=== PATIENT | female | born 1995 | race Two or more races ===

== ENCOUNTER 2024-02-09 16:33 | Observation (INO) | payer MEDICAID, SELFPAY ==
[2024-02-09 16:33] VITALS: BMI 34.6
== END 2024-02-09 17:40 | disposition home or self-care (01) ==
PROVIDERS: Admitting Provider Obstetrics & Gynecology; Visit Provider Obstetrics & Gynecology
DX: O36.8130 Decreased fetal movements, third trimester, not applicable or unspecified (principal); O26.893 Other specified pregnancy related conditions, third trimester; R10.2 Pelvic and perineal pain; Z3A.40 40 weeks gestation of pregnancy
CPT/HCPCS: 59025; 59899